=== PATIENT | male | born 1995 | race Caucasian/White ===

== ENCOUNTER 2017-10-31 17:57 | Emergency (ER) | payer OTHER ==
[~2017-10-31] VITALS: Ht 162.6 cm; Wt 77.3 kg
[~2017-10-31 17:57] MED LIST: ONDA4TAB6 PO
[2017-10-31] MEDS ORDERED: ondansetron 4mg rapidly disintigrating tab PO ONE (20:20)
[2017-10-31] MEDS ORDERED: HYDROcodone/acetaminophen 5mg/325mg tablet PO ONE (20:20)
[2017-10-31] MEDS ORDERED: ketorolac trometh inj. 60 MG/2 ML VIAL IM ONE (20:20)
[2017-10-31] MEDS ORDERED: HYDR-3965 PO (20:35)
[2017-10-31] MEDS ORDERED: IBUP-1984 PO (20:35)
[2017-10-31] MEDS ORDERED: ACET-2615 PO (20:35)
[2017-10-31 20:47] VITALS: BP 144/79
== END 2017-10-31 20:49 | disposition home or self-care (01) ==
LOC: ER 17:58
DX: M54.2 Cervicalgia (principal); M54.6 Pain in thoracic spine; R11.0 Nausea; J45.909 Unspecified asthma, uncomplicated; Z79.899 Other long term (current) drug therapy; W13.2XXA Fall from, out of or through roof, initial encounter; Y93.89 Activity, other specified; Y92.89 Other specified places as the place of occurrence of the external cause; Y99.8 Other external cause status
CPT/HCPCS: 71046; 96372; 99284; J1885

== ENCOUNTER 2022-03-01 19:48 | Emergency (ER) | payer MEDICAID ==
[~2022-03-01] VITALS: Ht 162.6 cm; Wt 86.4 kg
[2022-03-01] MEDS ORDERED: dexamethasone sod phosphate 10mg/ml inj IV STA (22:28)
[2022-03-01] MEDS ORDERED: clindamycin 600mg/D5W 50ml 50 ML IV ONE (22:30)
[2022-03-01] MEDS ORDERED: normal saline 1000ML IV soln IV ONE (22:30)
[2022-03-01] MEDS ORDERED: ibuprofen tablet 400 MG TABLET PO ONE (22:40)
[2022-03-01] MEDS ORDERED: IBUP-1984 PO (22:52)
[2022-03-01] MEDS ORDERED: CLIN-97 PO (22:52)
[2022-03-01 23:15] LABS: BASOPHILS # (AUTO) 0.1 X10'3 (0-0.2); BASOPHILS % (AUTO) 0.4 % (0-1); EOSINOPHILS % (AUTO) 0.1 % (0-6); HEMATOCRIT 45.1 % (42.0-52.0); LYMPHOCYTES # (AUTO) 1.7 X10'3 (1.1-4.8); LYMPHOCYTES % (AUTO) 7.6 % (21-51); MEAN CORPUSCULAR HEMOGLOBIN 29.1 PG (27.0-31.0); MEAN CORPUSCULAR HGB CONC 33.3 g/dL (33.0-36.5); MEAN CORPUSCULAR VOLUME 87.6 FL (78-98); MEAN PLATELET VOLUME 8.6 FL (7.4-10.4); MONOCYTES % (AUTO) 9.2 % (2-12); NEUTROPHILS % (AUTO) 82.7 % (42-75); PLATELET COUNT 309 X10'3 (140-440); RED BLOOD COUNT 5.15 X10'6 (4.70-6.10); WHITE BLOOD COUNT 21.7 X10'3 (4.5-11.0)
[2022-03-01 23:31] LABS: ALANINE AMINOTRANSFERASE 26 U/L (12-78); ALBUMIN 4.1 G/DL (3.4-5.0); ALBUMIN/GLOBULIN RATIO 0.9 (1.1-1.5); ALKALINE PHOSPHATASE 132 IU/L (46-116); ANION GAP 11 (8-16); ASPARTATE AMINO TRANSFERASE 20 U/L (10-37); BILIRUBIN,TOTAL 0.6 MG/DL (0.1-1.0); BLOOD UREA NITROGEN 6 MG/DL (7-18); BUN/CREATININE RATIO 8.6 (5.4-32.0); CALCIUM 9.5 MG/DL (8.5-10.1); CHLORIDE 93 MMOL/L (99-107); GLUCOSE 109 MG/DL (70-104); POTASSIUM 3.7 MMOL/L (3.5-5.1); SODIUM 132 MMOL/L (135-145); TOTAL CARBON DIOXIDE 28.5 MMOL/L (24-32); TOTAL PROTEIN 8.5 G/DL (6.4-8.2); eGFR > 90 ML/MIN
[2022-03-02 00:47] VITALS: BP 124/78
== END 2022-03-02 00:52 | disposition home or self-care (01) ==
LOC: ER 19:49
DX: J36 Peritonsillar abscess (principal); Z20.822 Contact with and (suspected) exposure to COVID-19; F17.200 Nicotine dependence, unspecified, uncomplicated; J45.909 Unspecified asthma, uncomplicated; Z79.899 Other long term (current) drug therapy
CPT/HCPCS: 36415; 80053; 85025; 87040; 87502; 87503; 87635; 96374; 96375; 99284; C9803; J1100; J3490; J7030